=== PATIENT | female | born 1950 | race Asian ===

== ENCOUNTER 2017-12-02 16:46 | Emergency (ER) | payer MEDICARE, MEDICAID ==
[~2017-12-02] VITALS: Ht 157.5 cm; Wt 68.0 kg
[2017-12-02 16:56] VITALS: BP 115/57
== END 2017-12-02 20:05 | disposition left against medical advice (07) ==
LOC: ER 16:46
DX: R55 Syncope and collapse (principal); I12.0 Hypertensive chronic kidney disease with stage 5 chronic kidney disease or end stage renal disease; E11.22 Type 2 diabetes mellitus with diabetic chronic kidney disease; N18.6 End stage renal disease; Z99.2 Dependence on renal dialysis
CPT/HCPCS: 99283